=== PATIENT | male | born 1980 | race African-American/Black ===

== ENCOUNTER 2020-07-25 08:10 | Emergency (ER) | payer SELFPAY ==
[~2020-07-25] VITALS: Ht 177.8 cm; Wt 104.3 kg
[2020-07-25] MEDS ORDERED: IBUPROFEN400 MG PO (09:37)
[2020-07-25] MEDS ORDERED: ULTRAM 50MG50 MG PO (09:39)
== END 2020-07-25 10:06 | disposition home or self-care (01) ==
LOC: FSED 08:40
DX: M25.511 Pain in right shoulder (principal); M77.8 Other enthesopathies, not elsewhere classified; X50.1XXA Overexertion from prolonged static or awkward postures, initial encounter; Y92.008 Other place in unspecified non-institutional (private) residence as the place of occurrence of the external cause; I10 Essential (primary) hypertension; E11.9 Type 2 diabetes mellitus without complications; F17.210 Nicotine dependence, cigarettes, uncomplicated
CPT/HCPCS: 99283